=== PATIENT | female | born 1990 | race Caucasian/White ===

== ENCOUNTER 2016-06-21 21:00 | Observation (INO) | payer SELFPAY ==
[2016-06-21] MEDS ORDERED: IOPAMIDOL 370 (76%) 100 ML VIAL IV ONE (21:01)
[2016-06-21] MEDS ORDERED: SODIUM CHLORIDE 0.9% 1,000 ML ONE (21:56)
[2016-06-21] MEDS ORDERED: ONDANSETRON 4 MG/2ML 2 ML VIAL ONE (21:56)
[2016-06-21] MEDS ORDERED: HYDROMORPHONE HCL 0.5 MG/0.5 ML SYRINGE ONE ×2 (21:57→23:23)
[2016-06-21 22:00] LABS: ABSOLUTE NEUTROPHIL COUNT 7.4 K/mm3 (1.8-7.7); BASO # 0.1 K/mm3 (0.0-0.2); BASO % 0.6 % (0.2-1.0); EOS # 0.3 (0.0-0.5); EOS % 2.4 % (0.9-2.9); HEMATOCRIT 39.4 % (37.0-47.0); HEMOGLOBIN 13.3 gm/l (12.0-16.0); IMM NEUT% 0.2 % (0-1); LYMPH # 2.6 (1.0-4.8); LYMPH % 22.8 % (15-45); MEAN CELL VOLUME 87.8 fl (81.0-99.0); MEAN CORPUSCULAR HEMOGLOBIN 29.6 pg (27.0-31.0); MEAN CORPUSCULAR HGB CONC 33.8 g/dl (33.0-37.0); MEAN PLATELET VOLUME 10.5 fl (7.4-10.4); MONO % 8.6 % (4-12); NEUT % 65.4 % (43-75); PLATELET COUNT 385 K/mm3 (130-400); RED CELL DISTRIBUTION WIDTH 11.8 % (11.5-14.5)
[2016-06-21 22:13] LABS: ALB/GLOB RATIO 1.1 (>1.0); CALCIUM 9.5 mg/dL (8.6-10.3)
[2016-06-21 23:44] LABS: SPECIFIC GRAVITY 1.015 (1.001-1.030); URINE BILIRUBIN NEGATIVE (NEGATIVE); URINE BLOOD NEGATIVE (NEGATIVE); URINE GLUCOSE (UA) NEGATIVE (NEGATIVE); URINE LEUKOCYTE ESTERASE NEGATIVE (NEGATIVE); URINE NITRITE NEGATIVE (NEGATIVE); URINE PROTEIN NEGATIVE (NEGATIVE); URINE UROBILINOGEN NORMAL (0-1 mg/dl)
[2016-06-21 23:45] LABS: URINE APPEARANCE TURBID; URINE COLOR AMBER
[2016-06-21 23:54] LABS: URINE RBC 0-1 /hpf; URINE WBC 0-2 /hpf
[2016-06-21 23:55] LABS: URINE AMORPHOUS SEDIMENT 3+ PHOSPHATES; URINE BACTERIA 0
[2016-06-22 00:09] LABS: AMPHETAMINES/METHAMPHETAMINES NEGATIVE (NEGATIVE); COCAINE NEGATIVE (NEGATIVE); MARIJUANA NEGATIVE (NEGATIVE); METHADONE NEGATIVE (NEGATIVE); OPIATES POSITIVE (NEGATIVE); TRICYCLIC ANTIDEPRESSANTS NEGATIVE (NEGATIVE)
[2016-06-22] MEDS ORDERED: MAALOX/LIDO2%VISC/SIMETHICONE 40 ML BOT ONE (00:56)
[2016-06-22] MEDS ORDERED: HYDROMORPHONE HCL 1 MG/ML SYRINGE ONE (01:34)
[2016-06-22] MEDS ORDERED: POTASSIUM CHLORIDE 10MEQ/100ML 100 ML IV ONE (02:07)
[2016-06-22] MEDS ORDERED: CEFTRIAXONE SODIUM 1 G VIAL ONE ×2 (02:07→05:22)
[2016-06-22] MEDS ORDERED: SODIUM CHLORIDE 0.9% 50 ML IV ONE ×2 (02:08→05:27)
[2016-06-22] MEDS ORDERED: IOPAMIDOL 300 (61%) 150 ML VIAL IV ONE (02:16)
[2016-06-22] MEDS ORDERED: MENTHOL/CETYLPYRD 1 EACH LOZENGE PO PRN (03:15)
[2016-06-22] MEDS ORDERED: MAGNESIUM HYDROXIDE 30 ML UDCUP PO PRN (03:15)
[2016-06-22] MEDS ORDERED: SODIUM CHLORIDE NS ADD VANTAGE IV SCH (03:15)
[2016-06-22] MEDS ORDERED: SODIUM CHLORIDE 0.9% 1,000 ML IV SCH (03:15)
[2016-06-22] MEDS ORDERED: CEFTRIAXONE SODIUM IV SCH (03:15)
[2016-06-22] MEDS ORDERED: BLISTEX LIPSTICK 1 EACH TP PRN (03:15)
[2016-06-22] MEDS ORDERED: BISACODYL 10 MG SUP PR PRN (03:15)
[2016-06-22] MEDS ORDERED: SODIUM CHLORIDE 0.9% 100 ML IV PRN (03:15)
[2016-06-22] MEDS ORDERED: DIPHENHYDRAMINE HCL 50 MG/1 ML VIAL IV PRN (03:15)
[2016-06-22] MEDS: KETOROLAC TROMETHAMINE 15 MG/ML VIAL IV PRN ×2 (03:25→15:47)
[2016-06-22 03:44] VITALS: BMI 24.3
[2016-06-22] MEDS ORDERED: POTASSIUM CHLORIDE 40 MEQ in SODIUM CHLORIDE 0.9% 500 ML IV ONE (04:01)
[2016-06-22] MEDS: HYDROMORPHONE HCL 1 MG/ML SYRINGE IV PRN ×9 (04:19→21:41)
[2016-06-22] MEDS ORDERED: PUMP TUBING ONE (04:49)
[2016-06-22] MEDS: ENOXAPARIN SODIUM 40 MG/0.4 ML SYRINGE SUB-Q SCH ×2 (04:59→20:53)
[2016-06-22] MEDS: SODIUM CHLORIDE 0.9% 1,000 ML IV SCH ×3 (05:23→15:44)
[2016-06-22] MEDS: POTASSIUM CHLORIDE 10MEQ/100ML 100 ML IV SCH ×4 (05:24→09:27)
[2016-06-22] MEDS ORDERED: CEFTRIAXONE 2 GM IV ONE (05:30)
--- NOTE | 2016-06-22 05:30 | CT ---
Exam Type: ABD/PELVIS W/ CON Date and Time: 06/21/2016 11:19 PM Clinical information: Worsening abdominal pain. Comparison: None Procedure: Imaging device: [employer] Aquilion [address] scanner 1 mm axial images were obtained through the abdomen and pelvis. Stacked reconstructed 3, 4 and 5 mm images were photographed in the axial coronal and sagittal planes. No oral contrast was utilized for this examination. 100 ml of Isovue-370 was injected intravenously. Exam: with intravenous contrast. FINDINGS: Lung bases:The visualized lung bases appear to be appropriate with no mass, effusion or consolidation visualized. Liver: There is a subtle low-attenuation focus is seen within the left hepatic lobe which may reflect a small cyst, though is too small to classify by CT criteria. Spleen: The spleen is homogeneous and does not appear to be enlarged. Gallbladder: Normal without enlargement or evidence of adjacent inflammatory changes. Pancreas: Normal without enlargement or evidence of adjacent inflammatory changes. Adrenal glands: Normal without enlargement or evidence of adjacent inflammatory changes. Abdominal aorta: The aorta is of normal caliber and appears to be without significant atherosclerotic disease. Kidneys: The renal enhancement is relatively symmetric. There appear to be areas of linear decreased enhancement within both kidneys. Considerations include areas of focal pyelonephritis, scarring or areas of cortical infarction. No current evidence of hydronephrosis is visualized. Bowel structures: The visualized bowel is of normal caliber without evidence of dilatation or obstruction. No free fluid or mesenteric inflammatory changes are identified. Appendix: The appendix is well-visualized and appears to be of normal caliber. No periappendiceal inflammatory changes or CT findings of appendicitis are currently observed. Bladder: Partially decompressed. Hernia: No abdominal wall or inguinal hernia is visualized on this examination. Adenopathy: A few mildly prominent central and right lower quadrant mesenteric lymph nodes are visualized. Osseous structures: No discrete osseous abnormalities are identified. Pelvic structures: There is an anteverted uterus with an intrauterine device normally located within the fundal portion of the endometrial canal. IMPRESSION: 1. Linear foci of nonenhancement within the bilateral renal parenchyma with considerations including areas of focal pyelonephritis, scarring or renal cortical infarction. 2. A normal appearance of the appendix without CT evidence of appendicitis. 3. A subtle low-attenuation focus within the left hepatic lobe, possibly reflecting a cyst though too small to classify by CT criteria. 4. An anteverted uterus with an indwelling intrauterine device. 5. A few mildly prominent central and right lower quadrant mesenteric lymph nodes. The findings were called to the emergency room at 0012 hours, 06/22/2016, by [facility].
--- NOTE | 2016-06-22 08:26 | HP ---
JACKLYN ONTIVEROS [id number] DATE OF ADMISSION: June 22, 2016 CHIEF COMPLAINT: Abdominal pain. HISTORY OF PRESENT ILLNESS: The patient is a 26-year-old female who denies significant past medical history who reports having a subtle abdominal pain over the last month. It seemed to get worse over the last week and particularly over the two hours prior to admission here. She had been trying to treat this with some Prilosec without much improvement. She has not had any other medication changes. She did travel to [place] including [place]. Patient describes the pain as being diffuse across the abdomen both above and below the belly button and on both the left and the right. She also describes having pain into the flanks bilaterally. Pain seems to be worsened with moving, somewhat decreased with lying down. She has not had any previous operations on her belly and does not remember any significant abdominal pathology but does recall having some stomach aches as a child. She has had no new sexual partners, no dyspareunia. PAST MEDICAL HISTORY: 1. 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 2. She is a 2, para 2. PAST SURGICAL HISTORY: None. ALLERGIES: NONE. MEDICATIONS: 1. Omeprazole. 2. Minocycline. 3. Spironolactone. SOCIAL HISTORY: She works at [employer]. She has been for four years. She has two kids ages 3 and 5 and has one cat for a pet. Traveled to [place] for two weeks. She reports rare cigarette smoking. Alcohol, perhaps five drinks per week. No particular uatsdin affiliation. Hobbies include exercise. FAMILY HISTORY: Father is 54 and has a previous history of appendectomy. Mom is about 54 also. Kids are ages 3 and 5 and have been healthy and have had no similar symptoms. REVIEW OF SYSTEMS: Eyes, she describes having some spotting vision recently. Ears are okay. Nose is okay. Mouth has been okay. Teeth are okay. Breathing has been okay. No lung complaints. No heart complaints. She did vomit times one today. No blood noted. No black, tarry stools or coffee ground emesis. She has been feeling a little constipated today. She thinks she might be dehydrated. She has had some feeling of difficulty to urinate but no dysuria. No blood in the urine. Last menstrual period, she does not have regular periods because of her IUD. Arms have been okay. Legs have been okay. She did describe having some ankle swelling last week and some pains in her shins while she was in [place]. No skin complaints. No central nervous system complaints. No genitourinary complaints. No vaginal discharge, no dyspareunia and no bleeding. PHYSICAL EXAM: GENERAL: Uncomfortable female. VITAL SIGNS: Temperature 97.8, respirations 18, blood pressure 120/78, pulse 79, 99% saturation on room air. HEAD: Head is normocephalic, atraumatic. EYES: Are unremarkable. Pupils are small. EARS: Are normal bilaterally. Tympanic membranes are unremarkable. NOSE: Is unremarkable. MOUTH: Dentition is good. Teeth have been bleached. Posterior pharynx is unremarkable. NECK: Is supple, no jugular venous distension. LUNGS: Clear to auscultation bilaterally. HEART: Regular rate and rhythm without murmur. ABDOMEN: Flat, bowel sounds are quiet. Reported tender diffusely. At this time she reports most tender just immediately infraumbilical. She describes some rebound tenderness but this is not evident on exam. Pain not particularly sensitive at McBurney's point. SKIN: Normal. Just some old striae are noted. BACK: Is unremarkable. There is some tenderness to percussion over the costovertebral angles bilaterally but is not exquisite and does not make her jump. GENITOURINARY: Exam is deferred at this time. BREAST: Exam is deferred. EXTREMITIES: Are unremarkable. Knees and feet are normal. Pulses are good. Perfusion is good. There is no calf pain, no calf tenderness. No fullness or cords noted behind the knee. Arms are unremarkable. Pulses are good in the hands bilaterally. NEUROLOGIC: Cranial nerves are intact. Speech is clear. The patient tends to keep her eyes closed and had received some medication but otherwise no focal deficits noted. LABORATORY: White count 11.3, hemoglobin 13.3, platelets 385. Sodium 134, potassium 2.8, chloride 100, CO2 19, BUN 14, creatinine 0.7, glucose 149, anion gap 18, calcium 9.5. AST 35, ALT 48, alkaline phosphatase 98, albumin 4.0, globulin 3.7. HCG is negative. Urinalysis, specific gravity 1.015, 2+ ketones, 0 to 1 red cells, 0 to 2 white cells, 7 to 10 epithelial cells, 3+ phosphate and 0 bacteria. Urine drug screen positive for opiates only. IMAGING: CT of the abdomen preliminary review shows wedge like hypodensity on the medial aspect of the right lower pole measuring up to 1.3 cm and additional smaller cortical hypodensities of the right lower pole and right upper pole. Also linear hypodensities extending from cortex to medulla at the left upper and lower poles. Differential diagnoses include pyelonephritis or scarring from prior pyelonephritis and small infarcts considered less likely. IUD is present. A 4 mm hypodensity at the bilateral aspects of the liver too small to accurately characterize but likely benign. A 1.1 hypodensity in the spleen incompletely characterized but likely benign. The appendix was not definitively identified but there are no pericecal inflammatory changes to suggest acute appendicitis. Evaluation of bowel limited by lack of oral contrast, no distention but there is no evidence of bowel obstruction, no free air, no free fluid. ASSESSMENT AND PLAN: 1. Abdominal pain with elevated white count, nonspecific abdominal exam. Wedge shaped changes noted in the kidneys. Consider for atypical presentation of pyelonephritis. Anticipate IV fluids, pain medicines, Rocephin and check stool for ova and parasites. Will consider surgical consult if diagnosis not more clear after review of CT with radiology. 2. History of acne with spironolactone and minocycline. We will be holding them. 3. Relative dehydration. Plan IV fluids. 4. Hypokalemia. Plan potassium replacement. cc: Denise Crow M.D.
[2016-06-22 08:32] LABS: URINE BILIRUBIN NEGATIVE (NEGATIVE); URINE BLOOD TRACE (NEGATIVE); URINE GLUCOSE (UA) 2+ (NEGATIVE); URINE LEUKOCYTE ESTERASE NEGATIVE (NEGATIVE); URINE NITRITE NEGATIVE (NEGATIVE); URINE PROTEIN NEGATIVE (NEGATIVE); URINE UROBILINOGEN NORMAL (0-1 mg/dl)
[2016-06-22 08:42] LABS: URINE APPEARANCE HAZY; URINE COLOR YELLOW
[2016-06-22 09:03] LABS: URINE RBC 0-1 /hpf
[2016-06-22 09:04] LABS: URINE BACTERIA 0; URINE EPITHELIAL CELLS 0-1 /hpf; URINE WBC NEG /hpf
[2016-06-22] MEDS: ONDANSETRON 4 MG/2ML 2 ML VIAL IV PRN ×2 (10:04→13:52)
--- NOTE | 2016-06-22 10:51 | US ---
DUPLEX SCAN VEIN EXT ARIES History: Leg pain with a recent plane trip [place]. Findings: Ultrasonography of the bilateral lower extremities were performed, with grayscale color and Doppler technique utilizing evaluation of the lower extremities. There is adequate compressibility of the deep venous systems without current findings of deep venous thrombosis. Normal responses are seen to augmentation and Valsalva maneuvers. Normal respiratory variation is observed as well. Impression: 1. A bilateral lower extremity ultrasound which currently appears negative, with no current findings of deep venous thrombosis observed.
[2016-06-22] MEDS: DOCUSATE SODIUM 100 MG CAPSULE PO SCH ×2 (10:52→20:54)
[2016-06-22] MEDS: BISACODYL 5 MG TABLET.EC PO PRN (12:16)
[2016-06-22] MEDS: CEFTRIAXONE 1 GRAM DUPLEX 50 ML IV SCH ×2 (20:49)
[2016-06-23] MEDS: HYDROMORPHONE HCL 1 MG/ML SYRINGE IV PRN ×2 (00:50→04:15)
[2016-06-23] MEDS: ONDANSETRON 4 MG/2ML 2 ML VIAL IV PRN ×2 (00:54→09:39)
[2016-06-23 07:04] LABS: ABSOLUTE NEUTROPHIL COUNT 9.4 K/mm3 (1.8-7.7); BASO % 0.3 % (0.2-1.0); EOS % 0.1 % (0.9-2.9); HEMATOCRIT 35.8 % (37.0-47.0); HEMOGLOBIN 12.1 gm/l (12.0-16.0); IMM NEUT% 0.3 % (0-1); LYMPH # 0.9 (1.0-4.8); MEAN CELL VOLUME 90.2 fl (81.0-99.0); MEAN CORPUSCULAR HEMOGLOBIN 30.5 pg (27.0-31.0); MEAN CORPUSCULAR HGB CONC 33.8 g/dl (33.0-37.0); MEAN PLATELET VOLUME 10.4 fl (7.4-10.4); MONO # 0.9 (0.0-0.8); MONO % 7.9 % (4-12); NEUT % 83.4 % (43-75); PLATELET COUNT 259 K/mm3 (130-400); RED CELL DISTRIBUTION WIDTH 11.6 % (11.5-14.5)
[2016-06-23 07:39] LABS: ALB/GLOB RATIO 0.9 (>1.0); ALBUMIN 3.5 gm/dL (3.5-5.7); CALCIUM 8.6 mg/dL (8.6-10.3); MAGNESIUM 1.6 mg/dL (1.9-2.7)
[2016-06-23] MEDS: DOCUSATE SODIUM 100 MG CAPSULE PO SCH ×2 (08:03→20:30)
[2016-06-23] MEDS: KETOROLAC TROMETHAMINE 15 MG/ML VIAL IV PRN ×3 (10:11→22:33)
[2016-06-23] MEDS ORDERED: HYDROCODONE/ACETAMINOPHEN 5/325MG TABLET PO PRN (11:25)
[2016-06-23] MEDS: PANTOPRAZOLE 40 MG TABLET DR PO SCH (11:53)
[2016-06-23] MEDS: BISACODYL 5 MG TABLET.EC PO PRN (11:53)
[2016-06-23] MEDS ORDERED: POTASSIUM CHLORIDE 30 MEQ in SODIUM CHLORIDE 0.9% 1,000 ML IV SCH (12:00)
[2016-06-23 12:20] LABS: CHLAMYDIA BD Negative (Negative); N.GONORRHOEAE BD Negative (Negative); SOURCE Urine (())
[2016-06-23] MEDS ORDERED: MORPHINE SULFATE 10 MG/ML SYRINGE IV PRN (15:15)
--- NOTE | 2016-06-23 15:25 | PDOC43 ---
- Subjective Chief Complaint: Abd pain Subjective: Reports Abdominal Pain (still needing IV pain meds), Denies Fever - Objective Vital Signs Temperature 98.2 F 06/23/16 12:00 Pulse Rate 91 06/23/16 12:00 Respiratory Rate 16 06/23/16 12:00 Blood Pressure 118/78 06/23/16 12:00 O2 Saturation by Pulse Oximetry 97 06/23/16 12:00 Oxygen Delivery Method Room Air Oxygen Flow Rate 0 Intake and Output 06/22/16 06/23/16 06/24/16 06:59 06:59 06:59 Intake Total 1393 2777 Output Total 3375 Balance 1393 -598 General: Alert, Oriented x3, Cooperative, Moderate Distress HEENT: Mucous membr. moist/pink Lungs: Clear to Auscultation Bilaterally Cardiovascular: Regular Rate and Rhythm Abdomen: Soft, Tenderness (diffuse but no guarding), Hypoactive Bowel Sounds, Non-Distended, Other (some rebound discomfort to point of palpation) Genitourinary: Other (see needle polisher consult) Skin: Warm, Dry, Intact Laboratory 06/23/16 06:30 06/23/16 06:30 06/23/16 06:30 RBC 3.97 L BUN 5 L Estimated GFR 149 H Phosphorus 2.2 L Magnesium 1.6 L Globulin 3.7 H Albumin/Globulin Ratio 0.9 L Current Medications: Current meds reviewed in EMR. - Problems: Assessment/Plan (1) Abdominal pain Qualifiers: Abdominal location: generalized Qualifier Code: (R10.84) Generalized abdominal pain Status: Acute Assessment/Plan: Unclear etiology, no evidence of uti or pyelonephritis, urine Cx was not done, treated empirically with Rocephin. Elevated inflammatory markers with nonspec. adenopathy on CT. Given presence of IUD, there is concern for PID, GC/Chlamydia screens are negative, pain severe and still requiring parenteral meds, cancel isolation given lack of any diarrhea-consulted with Gynecology, transition to oral pain meds as possible (2) Hypokalemia Status: Acute Assessment/Plan: 2.8--3.5 today presumed due to poor po intake and dehydration-cont. replacement (3) Hypomagnesemia Status: Acute Assessment/Plan: mild, replace VTE Prophylaxis: [facility] Disposition: home in 1-2 days depending on pain
--- NOTE | 2016-06-23 16:02 | PDOC36 ---
Provider Note Subject: Pediatric Nurse Practitioner consult Note: See dictated note. 26yo para 2, with 1 month of abd/pelvic pain, non localizing. History reviewed in chart and pt interviewed. Exam done on L&D: No guarding, but mild rebound tenderness across entire abdomen. No abnormal cervical or vaginal dc, clear cervical mucus. IUD properly positioned. No cervical motion tenderness. Cultures sent. Imp: I do not think this is Pediatric Nurse Practitioner in origin; PID or endometritis from IUD is clinically very unlikely. Plan: Findings reviewed with Dr Mccauley.
[2016-06-23] MEDS: ENOXAPARIN SODIUM 40 MG/0.4 ML SYRINGE SUB-Q SCH (20:30)
[2016-06-23] MEDS: OXYCODONE HCL 5 MG TABLET PO PRN (20:30)
[2016-06-23] MEDS: CEFTRIAXONE 1 GRAM DUPLEX 50 ML IV SCH ×2 (20:31)
[2016-06-24] MEDS: OXYCODONE HCL 5 MG TABLET PO PRN ×3 (03:38→16:08)
[2016-06-24 07:00] LABS: ABSOLUTE NEUTROPHIL COUNT 14.9 K/mm3 (1.8-7.7); BASO # 0.1 K/mm3 (0.0-0.2); BASO % 0.4 % (0.2-1.0); EOS % 0.1 % (0.9-2.9); HEMATOCRIT 39.9 % (37.0-47.0); HEMOGLOBIN 13.1 gm/l (12.0-16.0); IMM NEUT # 0.1 K/mm3 (0-0.2); IMM NEUT% 0.5 % (0-1); LYMPH # 1.1 (1.0-4.8); LYMPH % 6.1 % (15-45); MEAN CELL VOLUME 89.9 fl (81.0-99.0); MEAN CORPUSCULAR HEMOGLOBIN 29.5 pg (27.0-31.0); MEAN CORPUSCULAR HGB CONC 32.8 g/dl (33.0-37.0); MEAN PLATELET VOLUME 10.3 fl (7.4-10.4); MONO # 1.5 (0.0-0.8); MONO % 8.5 % (4-12); NEUT % 84.4 % (43-75); PLATELET COUNT 325 K/mm3 (130-400); RED CELL DISTRIBUTION WIDTH 11.7 % (11.5-14.5)
[2016-06-24] MEDS: KETOROLAC TROMETHAMINE 15 MG/ML VIAL IV PRN ×3 (07:42→20:33)
[2016-06-24] MEDS: DOCUSATE SODIUM 100 MG CAPSULE PO SCH ×2 (08:54→20:42)
--- NOTE | 2016-06-24 10:53 | CONS ---
Abbey Salinas : 1990 DATE OF CONSULTATION: 06/23/2016 HISTORY OF PRESENT ILLNESS: Abbey Salinas is a 26-year-old para 2-0-0-[address] Edwards in the project controller hours of 06/22/2016 because of ongoing abdominal pain. I spoke with the patient and I reviewed her chart. It seems that she has been having some diffuse abdominal pain for about a month now. She describes that she was having some mild cramping. She went in to have an acupuncture treatment. She says that she did this regularly even for no particular symptoms. After the acupuncture treatment, however, her abdominal pain became worse. It was not disabling and it would come and go to some degree. It was aggravated by activity. She actually took a trip to [place] over the holidays and was able to do many of the activities that she wanted to, but she typically would rest 2 to 3 times a day because of this nonspecific abdominal pain. She describes it in the mid epigastric area above her umbilicus, but the pain also is below the umbilicus mostly in the midline deep inside aggravated by activity and relieved by resting particularly on her left side. The patient was putting up with these symptoms for weeks, but then on June 21 the pain became definitely worse, more persistent, and not relieved by any medicine that she took at home. Eating or drinking fluids seemed to aggravate the pain, but she really was not having any significant nausea or vomiting. She did not have any significant gastrointestinal symptoms associated with these symptoms. She did not have any change in her bowel habits. The patient has had some mild low grade temperature, but no real fever or chills and even now still has no localizing symptoms other than mid abdominal pain. It is aggravated by lying flat on her back and better when she is on her side. VINYL DIPPER HISTORY: This patient has had two pregnancies and two vaginal births. Her children are ages 3 and 5 years old. She had a Mirena intrauterine device placed after the of the 3-year-old. Since then she really has not had any periods though she will have just a little bit of bloody discharge every once in awhile with no other symptoms. This is somewhat unpredictable, but probably related to her cycle. The patient has been with her for 11 years. They have been for the last 4 years. She is not concerned about any sexually transmitted infections. She denies any new activities or any risky behavior. She denies any recreational drug use. PAST MEDICAL HISTORY: The patient mentions that when she was 7-years-old she used to get stomachaches and this went on for over a year, but then eventually resolved without any particular treatment. No definite diagnosis was ever made. This patient did have a CT scan when she came into the emergency room, this was done on the evening of 06/21/2016, it suggested a normal appearance of the appendix. There were no definite findings though there were a few mildly prominent central and right lower quadrant mesenteric lymph nodes. The uterus was noted to be anteverted with an intrauterine device that appeared to be normally positioned in the fundus. There was some question about a possible focal pyelonephritis, but the patient's urinalysis has been normal. Her blood work was reviewed and it shows a mild elevation of the white blood cell count, but no significant shift to the left and no other findings on CBC. It is interesting that the patient's sed rate, CRP, and D-dimer are all mildly elevated suggesting some type of inflammatory or infectious process, but not diagnostic. Because of the elevated D-dimer the patient had an ultrasound of her legs, but this was read as negative with no suggestion of deep venous thrombosis. The patient has been in the hospital, ```````` admitted since the project controller hours of 06/22/2016. She has been getting some IV fluids. She was given some IV narcotic medication which seemed to cause the nausea and vomiting. She was switched to by mouth pain medicine today, but even this is not helping much. The patient's maximal temperature was 99.5 this morning. Blood pressures have been normal. Pulse is between 90 and 100. The patient has received a couple of doses of ceftriaxone, the last one was given on 06/22/2016 at 9:00 p.m. PHYSICAL EXAMINATION: The patient was brought to an exam room for a physical exam. GENERAL: She is a pleasant intelligent young woman with blonde hair and light skin. She was curled up on her left side as her most comfortable position. LUNGS: Clear to auscultation bilaterally. HEART: Regular rate and rhythm with a pulse in the low 90's. Respirations were normal. HEENT: Abbey had good color in her face. ABDOMEN: Appeared slightly bloated with bowel sounds heard in all quadrant though they seemed a little bit hypoactive. On gentle palpation there was no localized tenderness identified. The patient again described the tenderness primarily around and under her umbilicus. On deeper palpation the patient did have tenderness across the lower abdomen on the left side a bit more than on the right side. She did not have any guarding, but she did describe some rebound tenderness particularly on palpation of the upper abdomen. The deep palpation was not that uncomfortable, but as I let go it was painful. There was no CVA tenderness particularly. PELVIC: On pelvic exam the external genitalia were normal. There was no abnormal vaginal discharge. The vaginal secretions appeared off white and creamy. There was no odor. The cervix appeared normal, multiparous. The intrauterine device strings were easily visible measuring about 1 cm in length. I took a general culture from the endocervical canal and then a higher sample was taken GC and Chlamydia testing. The endocervical secretions showed clear mucus. There was no sign of any purulent discharge. On bimanual exam the patient had no tenderness on palpation of the pelvic floor. There was no tenderness on cervical motion. The uterus itself seemed small, anteverted, and mobile and with no particular discomfort on this exam. The patient was more tender when I palpated higher up to feel the adnexa, but I am not convinced that the pain was coming from the ovaries which seemed normal and mobile. There is no free fluid described on a CT scan and indeed there is no sense of any pelvic mass or engorgement at all. IMPRESSION: Based on this patient's clinical exam I do not think that she has a pelvic infection or any type of infection related to the intrauterine device. We did repeat the GC and Chlamydia test though a prior urine test came back negative today. It is interesting that the pain does not seem to be coming from the uterus itself and I do not think that it is related to the intrauterine device. On the other than the patient is quite tender across the lower abdomen, possibly this may be somehow related to the adnexa, but this patient certainly has no classic risk factors nor findings of pelvic inflammatory disease. At some point if this pain persists it may be worthwhile to obtain a pelvic ultrasound to further evaluate the ovaries, but I am not recommending this unless other possibilities have been explored. I discussed with Abbey the possibility of removing her intrauterine device considering this is a potential foreign body that could be a concern. On the other hand clinically there is no suggestion of a problem related to the intrauterine device. It was decided that we would leave it in place for now. The patient is not interested in having another child any time soon and in fact she is considering permanent contraception. PLAN: This patient was discussed directly with Dr. Mccauley. I explained that I do not think that her symptoms are gynecological in origin. I do not have working diagnosis though I am concerned about a possible chronic appendicitis or Meckel's diverticulum perhaps. At some point it may be worthwhile to do a pelvic ultrasound. The patient may also benefit from a repeat CT scan. Please reconsult me if you have any further gynecological concerns. Thank you for being allowed to participate in this patient's care. JOB: [id number]
--- NOTE | 2016-06-24 11:03 | PDOC43 ---
- Subjective Chief Complaint: Abd pain Subjective: Reports Urinating Without Difficulty, Denies Bowel Movement, Denies Vomiting, Denies Fever - Objective Vital Signs Temperature 98.9 F 06/24/16 08:08 Pulse Rate 94 06/24/16 08:08 Respiratory Rate 16 06/24/16 08:08 Blood Pressure 123/79 06/24/16 08:08 O2 Saturation by Pulse Oximetry 99 06/24/16 08:08 Oxygen Delivery Method Room Air Oxygen Flow Rate 0 Intake and Output 06/23/16 06/24/16 06/25/16 06:59 06:59 06:59 Intake Total 2777 2447 Output Total 3372 3075 500 Balance -598 -628 -500 General: Alert, Oriented x3, Cooperative, Mild Distress HEENT: Mucous membr. moist/pink Lungs: Clear to Auscultation Bilaterally Cardiovascular: Regular Rate and Rhythm Abdomen: Soft, Tenderness (diffusely but no guarding, pain rebounds to point of palpation but not to stable location and is not focal), Hypoactive Bowel Sounds , Distention (mild) Extremities: No Edema Skin: Warm, Dry, Intact Laboratory 06/24/16 06:30 06/23/16 06:30 06/24/16 06:30 MCHC 32.8 L ESR 61 H Current Medications: Current meds reviewed in EMR. - Problems: Assessment/Plan (1) Abdominal pain Qualifiers: Abdominal location: generalized Qualifier Code: (R10.84) Generalized abdominal pain Status: Acute Assessment/Plan: Unclear etiology, no evidence of uti or pyelonephritis, urine Cx was not done, treated empirically with Rocephin. Elevated inflammatory markers with nonspec. adenopathy on CT. Given presence of IUD, there is concern for PID, GC/Chlamydia screens are negative, pain severe and still requiring parenteral meds, cancel isolation given lack of any diarrhea, consulted with Gynecology and not felt to havie PID, transition to oral pain meds as possible-repeat CT today if negative consider endoscopic eval (2) Hypokalemia Status: Acute Assessment/Plan: 2.8--3.5 today presumed due to poor po intake and dehydration-cont. replacement (3) Hypomagnesemia Status: Acute Assessment/Plan: mild, replace VTE Prophylaxis: [facility] Disposition: home in 1-2 days depending on pain
--- NOTE | 2016-06-24 12:26 | CT ---
CT ABDOMEN AND PELVIS WITH CONTRAST HISTORY: Diffuse abdominal pain and leukocytosis. TECHNIQUE: Following intravenous administration of 125 mL Isovue-300, contiguous axial images were acquired from the lung bases to the ischial tuberosities. Oral contrast was administered. COMPARISON: 06/21/2016 study. FINDINGS: LUNG BASES: No gross airspace consolidation or pleural effusion. LIVER: Redemonstration of small left-sided cysts, 5 mm in size. SPLEEN: No focal lesion. PANCREAS: No focal lesion. ADRENAL GLANDS: No mass effect. KIDNEYS: Multiple wedgelike focus of hypoattenuation bilaterally, right greater than left, which could relate to pyelonephritis or infarct formation, seen previously GALLBLADDER: Layering high attenuation material which may reflect vicarious excretion of contrast, not seen on prior study BOWEL: Interval increase in prominence of the proximal colon with fluid content. Mild prominence of multiple left paramedian small bowel loops, up to 3.2 cm in size. Limited evaluation of the distal colon due to decompression. There is mild wall thickening in association with the relatively featureless loop of bowel at the left paramedian lower abdomen, not seen on prior study. There is significant interval increase in mesenteric stranding. APPENDIX: Normal gas-filled appendix. PELVIC ORGANS: Intrauterine device noted. Multicystic appearance of the ovaries. FREE FLUID: Mild free fluid, no free air identified. ABDOMINOPELVIC LYMPH NODES: Increased number of mesenteric lymph nodes. ABDOMINAL AORTA: Normal caliber. OSSEOUS STRUCTURES: No grossly destructive lesions. IMPRESSION: 1. Interval development of mesenteric edema and free fluid. Wall thickening of a loop of small bowel at the left mid abdomen, with fluid content within the colon, correlate for enterocolitis. Increased number of mesenteric lymph nodes. 2. Redemonstration of linear foci of hypoattenuation involving the kidneys, correlate for pyelonephritis versus multiple renal infarcts. 3. Vicarious excretion of contrast. 4. Intrauterine device in place. 5. Redemonstration of subcentimeter cystic lesion of the liver. 6. Normal appendix. Findings discussed with Dr. Mccauley of the hospitalist clinical service on 06/24/2016.
[2016-06-24] MEDS: PANTOPRAZOLE 40 MG TABLET DR PO SCH (12:39)
[2016-06-24 14:22] LABS: LIPASE 46 U/L (11-82)
[2016-06-24] MEDS: SODIUM,POTASSIUM,&MAG SULFATES 354 ML (2 DOSE KIT) PO SCH (17:10)
[2016-06-24] MEDS: ONDANSETRON 4 MG/2ML 2 ML VIAL IV PRN (17:31)
[2016-06-24] MEDS ORDERED: PUMP TUBING ONE (17:58)
[2016-06-24] MEDS ORDERED: PROMETHAZINE HCL 12.5 MG in SODIUM CHLORIDE 0.9% 50 ML IV ONE (18:00)
[2016-06-24] MEDS ORDERED: SODIUM,POTASSIUM,&MAG SULFATES 354 ML (2 DOSE KIT) PO ONE (18:30)
[2016-06-24] MEDS: CEFTRIAXONE 1 GRAM DUPLEX 50 ML IV SCH ×2 (20:22)
[2016-06-24] MEDS: ENOXAPARIN SODIUM 40 MG/0.4 ML SYRINGE SUB-Q SCH (20:22)
[2016-06-25 00:15] LABS: C DIFF TOXIN A/B NEGATIVE (NEGATIVE)
[2016-06-25 00:16] LABS: STOOL FOR OCCULT BLOOD POSITIVE (NEGATIVE)
[2016-06-25] MEDS: OXYCODONE HCL 5 MG TABLET PO PRN ×2 (00:59→10:37)
[2016-06-25 04:01] LABS: ANA Negative (Negative)
[2016-06-25] MEDS: KETOROLAC TROMETHAMINE 15 MG/ML VIAL IV PRN (04:19)
[2016-06-25] MEDS: SODIUM,POTASSIUM,&MAG SULFATES 354 ML (2 DOSE KIT) PO SCH (04:20)
[2016-06-25] MEDS ORDERED: LACTATED RINGERS 1,000 ML ONE (05:41)
[2016-06-25] MEDS ORDERED: IV START KIT ONE (05:41)
[2016-06-25] MEDS ORDERED: LACTATED RINGERS 1,000 ML IV SCH (06:30)
[2016-06-25 07:21] LABS: ABSOLUTE NEUTROPHIL COUNT 12.2 K/mm3 (1.8-7.7); BASO # 0.1 K/mm3 (0.0-0.2); BASO % 0.6 % (0.2-1.0); EOS # 0.2 (0.0-0.5); EOS % 1.2 % (0.9-2.9); HEMATOCRIT 39.4 % (37.0-47.0); HEMOGLOBIN 12.9 gm/l (12.0-16.0); IMM NEUT # 0.1 K/mm3 (0-0.2); IMM NEUT% 0.5 % (0-1); LYMPH # 1.5 (1.0-4.8); LYMPH % 9.7 % (15-45); MEAN CELL VOLUME 89.5 fl (81.0-99.0); MEAN CORPUSCULAR HEMOGLOBIN 29.3 pg (27.0-31.0); MEAN CORPUSCULAR HGB CONC 32.7 g/dl (33.0-37.0); MEAN PLATELET VOLUME 10.7 fl (7.4-10.4); MONO # 1.3 (0.0-0.8); MONO % 8.6 % (4-12); NEUT % 79.4 % (43-75); PLATELET COUNT 332 K/mm3 (130-400); RED CELL DISTRIBUTION WIDTH 11.8 % (11.5-14.5)
[2016-06-25 07:34] LABS: ALBUMIN 3.5 gm/dL (3.5-5.7); CALCIUM 9.2 mg/dL (8.6-10.3)
[2016-06-25] MEDS ORDERED: PUMP TUBING ONE (08:12)
[2016-06-25] MEDS ORDERED: PROPOFOL 40 ML IV ONE (08:31)
[2016-06-25] MEDS: DOCUSATE SODIUM 100 MG CAPSULE PO SCH (10:16)
[2016-06-25] MEDS ORDERED: IBUPROFEN 600 MG TABLET PO PRN (10:53)
[2016-06-25] MEDS ORDERED: SUCRALFATE 1 G/10 ML DOSE PO SCH (11:00)
[2016-06-25] MEDS: PANTOPRAZOLE 40 MG TABLET DR PO SCH (12:17)
[2016-06-25 14:12] LABS: HELICOBACTER PYLORII DETECTION NEGATIVE (NEGATIVE)
[2016-06-25 14:33] VITALS: BP 120/80
--- NOTE | 2016-06-25 14:35 | DS ---
[facility] DATE OF ADMISSION: June 22, 2016 DATE OF DISCHARGE: June 25, 2016 DISCHARGE DIAGNOSIS: Generalized abdominal pain. OTHER DIAGNOSES: Include: 1. Dehydration. 2. Hypokalemia. 3. Hypomagnesemia. 4. Possible pyelonephritis based on CT findings. Urine culture was never performed. CONSULTATIONS: Included a gynecological consultation with Dr. Perla Law on June 24, 2016 and a gastroenterology consultation with Dr. Panchito Grajeda. PROCEDURES: Included an upper and lower endoscopy performed on June 25 with findings of mild esophagitis only. TO SUMMARIZE THE ADMISSION AND HOSPITAL COURSE: The patient is a 26-year-old female who presented with a one month history of progressive abdominal pain nonresponsive to Prilosec. She did have some flank pain bilaterally as well, but no urinary complaints. When she presented she was afebrile and had a white blood cell count mildly elevated at 11,000. She had hypokalemia with a potassium of 2.8, normal creatinine of 0.7. Her urinalysis shows 2+ ketones, 0-1 red cell, 0-2 white cells, 7-10 epithelial cells and [address] of the abdomen and pelvis performed in the emergency department with IV contrast showed linear foci of non-enhancement within both kidneys suspicious for a focal pyelonephritis. No obstruction, stones, or hydronephrosis was seen. Appendix was visualized and normal and no other acute finding were seen on her CT except for some mildly prominent mesenteric lymph nodes. She was referred to the hospitalist service for observation. She was empirically treated with Rocephin. Her culture was never cultured. During her stay she had persistent severe abdominal pain requiring parenteral narcotics. Her white blood cell count showed persistent elevation. She had an elevation in her inflammatory markers including an erythrocyte sedimentation rate up to 61, C-reactive protein up to 6.8, and D-dimer elevation up to 0.84. Patient had a Doppler study of her lower extremities because of the elevated D-dimer which was negative. She had gynecological consultation because of persistent pain and presence of an intrauterine device and patient was not felt to have pelvic inflammatory disease. She had a follow up CT scan done on June 24, 2016 with findings of mesenteric edema and free fluid in the abdomen, some mild wall thickening of the left mid colon was noted, there were persistent linear foci of hypoattenuation involving the kidney's again suspicious for pyelonephritis versus multiple renal infarcts. She had C-difficile toxin and antigen screens done of her stool which were formed and not diarrheal, both were negative. Chlamydia and Gonorrhea cultures were negative. Stool cultures show Shigatoxin negative and are pending. An antinuclear antibody screen was negative. A repeat urinalysis again showed no sediment or casts and no white cells or red cells, no bacteria. She had some increase in her white count up to 17,000 on June 24 trending down to 15,000 on June 25. She had some improvement in her abdominal pain which was mild, but significant such that she was able to wean off of IV narcotic medications and control her pains with oral oxycodone. She is felt to be medically stable for discharge on June 25. PHYSICAL EXAMINATION: VITALS: At discharge showed a temperature of 99.0, pulse 92, blood pressure 116/73, respirations 18, oxygen saturation 97% on room air, body mass index 24.4, and weight of 64.4 kg. GENERAL: This is well-developed, well-nourished female in no acute distress. HEENT: Unremarkable. NECK: Supple without lymphadenopathy or thyromegaly. LUNGS: Clear to auscultation bilaterally. CARDIOVASCULAR: Reveals a regular rate and rhythm without a murmur. ABDOMEN: Soft, nontender, nondistended with positive bowel sounds. DISPOSITION: Home. DISCHARGE DIET: Regular. DISCHARGE MEDICATIONS: 1. I am going to have her stop taking Minocycline in case this may be contributing to her symptoms. 2. I prescribed ciprofloxacin 500 mg twice daily for 7 days for possible empiric treatment of pyelonephritis although, I think this is doubtful. 3. She will use ibuprofen 600 mg four times daily as needed for pain with oxycodone 5 to 10 mg every 3 hours as needed for severe pain, 45 pills, no refills. 4. She is going to continue with Prilosec 20 mg daily and spironolactone 25 mg daily for her acne. FOLLOW UP: She has follow up scheduled with Dr. Denise Crow on July 02 at 3:30. JOB: [id number] CC: Dr. Denise Crow
--- NOTE | 2016-06-29 14:39 | SURGPATH ---
[facility] [address] [place] [id number] Patient Name: JACKLYN ONTIVEROS MR#: [id number] : 1990 Gender: F Specimen #: [id number] Collected: 06/25/2016 Received: 06/26/2016 Reported: 06/29/2016 Submitting Phys: MAO WHITLEY Copy To Phys: [facility] CROW WONG JAMES H III Clinical History / Pre-Operative Diagnosis: Abdominal pain; nausea; rule out Giardia, celiac sprue, gastritis, ileitis and colitis Specimen Source / Surgical Procedure Performed: #1-duodenal biopsy; #2-antral biopsy; #3-terminal ileum biopsy; #4-cecal biopsy; #5-sigmoid biopsy at 30 cm Interpretation: 1. DUODENUM, BIOPSY: - NO DIAGNOSTIC ABNORMALITIES 2. STOMACH, BIOPSY: - MINIMAL REACTIVE GASTROPATHY - NO HELICOBACTER ORGANISMS SEEN ON ROUTINE STAIN 3. TERMINAL ILEUM, BIOPSY: - NO DIAGNOSTIC ABNORMALITIES - REACTIVE LYMPHOID FOLLICLES 4. CECUM, BIOPSY: - NO DIAGNOSTIC ABNORMALITIES 5. SIGMOID COLON, 30 CM, BIOPSY: - NO DIAGNOSTIC ABNORMALITIES Electronically Signed Out Ninoska Tse M.D. Gross Description: #1 The specimen is received in a formalin filled container labeled with the patient's name and "duodenal biopsy". A single suarez biopsy is 0.5 cm. Totally embedded in cassette #1. #2 The specimen is received in a formalin filled container labeled with the patient's name and "antral biopsy". Two suarez biopsies are each 0.3 cm. Totally embedded in cassette #2. #3 The specimen is received in a formalin filled container labeled with the patient's name and "terminal ileum biopsy". Two sky-suarez biopsies are each 0.3 cm. Totally embedded in cassette #3. #4 The specimen is received in a formalin filled container labeled with the patient's name and "cecal biopsy". Two sky-suarez biopsies are 0.3 and 0.5 cm. Totally embedded in cassette #4. #5 The specimen is received in a formalin filled container labeled with the patient's name and "sigmoid biopsy at 30 cm". A single suarez biopsy is 0.4 cm. Totally embedded in cassette #5. Kev Polk PMason Microscopic Description: Part 1: Sections show duodenal mucosa with overall intact architecture with a villous to crypt ratio of three to one. No increased intraepithelial lymphocytes, gastric metaplasia, active duodenitis, or evidence of Giardia are seen on routine stain. No malignancy is seen. Part 2: Sections show gastric antral and oxyntic mucosa with overall intact architecture. No significant active or chronic inflammation is seen. No Helicobacter organisms are seen on routine stain. No dysplasia or malignancy is seen. Reactive foveolar hyperplasia is seen, with minimal fibrosis of the lamina propria. Part 3: Sections show terminal ileum with overall intact architecture with a villous to crypt ratio of three-one. No increased intraepithelial lymphocytes, thickened subepithelial collagen band, or active ileitis is seen. Reactive lymphoid follicles are seen. Dr. Carlee Conley has reviewed this part and concurs with the interpretation. Part 4: Sections show colonic mucosa with overall intact architecture with straight crypts extending to the muscularis mucosa. No increased intraepithelial lymphocytes, thickened subepithelial collagen band, or active colitis is seen. No granulomas, dysplasia, or carcinoma is seen. Part 5: Sections show colonic mucosa with overall intact architecture with straight crypts extending to the muscularis mucosa. No increased intraepithelial lymphocytes, thickened subepithelial collagen band, or active colitis is seen. No granulomas, dysplasia, or carcinoma is seen. 1: 26248 2: 41657 3: 60360 4: 04219 5: 03340 R10.9 R11.0
== END 2016-06-25 14:30 | disposition home or self-care (01) ==
LOC: ED 21:00 → MS 06-22 02:15
PROVIDERS: ADMIT Family Medicine; ATTEND Family Medicine
PROC: 0DB78ZX Excision of Stomach, Pylorus, Via Natural or Artificial Opening Endoscopic, Diagnostic (ICD-10-PCS; principal; 2016-06-25)
DX: R10.84 Generalized abdominal pain (principal); E86.0 Dehydration; E87.6 Hypokalemia; E83.42 Hypomagnesemia; K20.9 Esophagitis, unspecified; K52.81 Eosinophilic gastritis or gastroenteritis
CPT/HCPCS: 43239; 83690; 87491; 87591; 87324; 87449; 85379; 82150; 86038; 84703; 86141; 85025 ×4; 87040; 87070; 87045; 87046 ×2; 87427; 80053 ×3; 87081; 87205; 83735 ×2; 84100; 85651 ×2; 82270; 81001 ×2; 87209; 87177; 36415 ×4; 74177 ×2; 96375 ×6; 96376 ×6; 99285 ×2; 96365; 82962; 96372 ×3; 96366; 93970; A9270 ×22; J1170 ×15; J1650 ×4; J2270; J2550; J3480 ×2; J0696 ×6; J1885 ×9; J2405 ×6; J7120 ×2; J7030 ×6; J7050 ×5; Q9967 ×2; G0477; G0378 ×2